=== PATIENT | male | born 1945 | race African-American/Black ===

== ENCOUNTER 2019-04-11 16:36 | Emergency (ER) | payer OTHER, MEDICAID ==
[~2019-04-11] VITALS: Ht 180.3 cm; Wt 126.1 kg
[2019-04-11 16:41] VITALS: Ht 180.3 cm; Wt 126.1 kg
[2019-04-11 17:49] LABS: BASOPHIL % 0.2 % (0-2); PLATELET COUNT 144 x10^3mcL (130-400); RED CELL DISTRIBUTION WIDTH 13.7 % (11.5-14.5)
[2019-04-11 18:03] LABS: CALCIUM 8.7 mg/dL (8.5-10.1); CARBON DIOXIDE 26.6 mmol/L (21-32); CHLORIDE SERUM 96 mmol/L (98-107); CREATININE SERUM 1.2 mg/dL (0.7-1.3); GLUCOSE SERUM 204 mg/dL (74-106); POTASSIUM SERUM 3.1 mmol/L (3.5-5.1); SODIUM SERUM 134 mmol/L (136-145)
[2019-04-11 18:07] LABS: ALBUMIN 3.9 g/dL (3.4-5.0); ALKALINE PHOSPHATASE 84 U/L (46-116); ALT/SGPT 54 U/L (16-63); AST/SGOT 61 U/L (15-37); BILIRUBIN TOTAL 1.28 mg/dL (0.20-1.00); TOTAL PROTEIN, SERUM 7.7 g/dL (6.4-8.2)
[2019-04-11 19:46] LABS: microscopic required? YES; urine erythrocyte NEGATIVE (NEGATIVE)
[2019-04-11 21:42] VITALS: BP 133/85
== END 2019-04-11 21:42 | disposition home or self-care (01) ==
LOC: ED 16:36
PROVIDERS: Emergency Medicine
DX: J11.1 Influenza due to unidentified influenza virus with other respiratory manifestations (principal); R10.9 Unspecified abdominal pain
CPT/HCPCS: 36415; 82962; 87804; Q0092

== ENCOUNTER 2019-07-30 02:14 | Inpatient (IN) | payer OTHER ==
[~2019-07-30] VITALS: Ht 180.3 cm; Wt 122.6 kg
[2019-07-30 02:26] VITALS: Ht 180.3 cm; Wt 122.6 kg
[2019-07-30 02:50] LABS: BASOPHIL % 0.4 % (0-2); PLATELET COUNT 166 x10^3mcL (130-400); RED CELL DISTRIBUTION WIDTH 14.1 % (11.5-14.5)
[2019-07-30 02:53] LABS: CALCIUM 8.6 mg/dL (8.5-10.1); CARBON DIOXIDE 26.9 mmol/L (21-32); CHLORIDE SERUM 103 mmol/L (98-107); GLUCOSE SERUM 221 mg/dL (74-106); POTASSIUM SERUM 3.4 mmol/L (3.5-5.1); SODIUM SERUM 141 mmol/L (136-145)
[2019-07-30 02:57] LABS: ALBUMIN 3.5 g/dL (3.4-5.0); ALKALINE PHOSPHATASE 62 U/L (46-116); ALT/SGPT 36 U/L (16-63); AST/SGOT 29 U/L (15-37); BILIRUBIN TOTAL 0.67 mg/dL (0.20-1.00)
[2019-07-30 06:17] VITALS: BP 146/86
[2019-07-30 07:57] VITALS: BP 148/88
[2019-07-30 11:01] VITALS: BP 146/89
[2019-07-30] MEDS ORDERED: LANOXIN0.125 MG PO (11:21)
[2019-07-30] MEDS ORDERED: LASIX40 MG PO (11:22)
[2019-07-30] MEDS ORDERED: LISINOPRIL40 MG PO (11:22)
[2019-07-30] MEDS ORDERED: SIMVASTATIN80 M1 PO (11:23)
[2019-07-30] MEDS ORDERED: ZYLOPRIM300 MG PO (11:23)
[2019-07-30] MEDS ORDERED: KLOR-CON 1010 MEQ PO (11:41)
[2019-07-30] MEDS ORDERED: CARVEDILOL25 M1 PO (11:50)
[2019-07-30] MEDS ORDERED: FORTAMET1000 MG PO (11:50)
[2019-07-30] MEDS ORDERED: ECOTRIN325 M1 PO (11:52)
[2019-07-30] MEDS ORDERED: HYDRALAZINE HCL25 MG PO (11:52)
[2019-07-30] MEDS ORDERED: INSR SC (11:55)
[2019-07-30] MEDS ORDERED: TAMSULOSIN HCL0.4 MG PO (11:57)
[2019-07-30] MEDS ORDERED: FARXIGA5 MG PO (11:58)
[2019-07-30 16:56] VITALS: BP 158/102
[2019-07-30 18:35] VITALS: BP 148/88
[2019-07-30 22:06] VITALS: BP 157/88
[2019-07-31 06:29] VITALS: BP 139/82
[2019-07-31 06:45] LABS: ALBUMIN 3.5 g/dL (3.4-5.0); ALKALINE PHOSPHATASE 55 U/L (46-116); ALT/SGPT 34 U/L (16-63); AST/SGOT 26 U/L (15-37); BILIRUBIN TOTAL 1.2 mg/dL (0.20-1.00); CALCIUM 9.3 mg/dL (8.5-10.1); CARBON DIOXIDE 29.6 mmol/L (21-32); CHLORIDE SERUM 102 mmol/L (98-107); CREATININE SERUM 1.1 mg/dL (0.7-1.3); GLUCOSE SERUM 134 mg/dL (74-106); MAGNESIUM 1.7 mg/dL (1.8-2.4); POTASSIUM SERUM 3.4 mmol/L (3.5-5.1); SODIUM SERUM 142 mmol/L (136-145); TOTAL PROTEIN, SERUM 6.9 g/dL (6.4-8.2)
[2019-07-31 07:54] VITALS: BP 150/92
[2019-07-31 12:15] VITALS: BP 137/90
[2019-07-31 17:34] VITALS: BP 155/95
[2019-07-31] MEDS ORDERED: LASIX40 MG PO (18:08)
[2019-07-31 18:23] VITALS: BP 155/95
[2019-07-31] MEDS ORDERED: TAMSULOSIN HCL0.4 MG PO (18:41)
== END 2019-07-31 20:36 | disposition home health service (06) | DRG 291 ==
LOC: ED 02:14 → DU 05:06
PROVIDERS: Emergency Medicine; Hospitalist; ADMIT Internal Medicine
DX: I11.0 Hypertensive heart disease with heart failure (principal); J96.21 Acute and chronic respiratory failure with hypoxia; Z68.41 Body mass index [BMI] 40.0-44.9, adult; I50.9 Heart failure, unspecified; E66.01 Morbid (severe) obesity due to excess calories; G47.33 Obstructive sleep apnea (adult) (pediatric); E11.9 Type 2 diabetes mellitus without complications; E78.5 Hyperlipidemia, unspecified; Z79.4 Long term (current) use of insulin
CPT/HCPCS: 36600; 82962; 83880; 97116-GP; G0378; J1650; J1815; J1940; J3475; Q0092

== ENCOUNTER 2020-02-08 12:38 | Emergency (ER) | payer OTHER ==
[~2020-02-08 12:38] MED LIST: CARVEDILOL25 M1 PO; ECOTRIN325 M1 PO; FARXIGA5 MG PO; FORTAMET1000 MG PO; HYDRALAZINE HCL25 MG PO; INSR SC; KLOR-CON 1010 MEQ PO; LANOXIN0.125 MG PO; LASIX40 MG PO; LISINOPRIL40 MG PO; SIMVASTATIN80 M1 PO; TAMSULOSIN HCL0.4 MG PO; ZYLOPRIM300 MG PO
[2020-02-08 16:33] VITALS: BP 139/73
== END 2020-02-08 16:34 | disposition home or self-care (01) ==
LOC: ED 12:38
DX: M54.12 Radiculopathy, cervical region (principal); R20.0 Anesthesia of skin; I50.9 Heart failure, unspecified; I11.0 Hypertensive heart disease with heart failure; E11.9 Type 2 diabetes mellitus without complications; J44.9 Chronic obstructive pulmonary disease, unspecified